=== PATIENT | female | born 1970 | race Caucasian/White ===

== ENCOUNTER → 2017-09-18 | Outpatient (CLI) | payer SELFPAY ==
[~2017-09-18] VITALS: Ht 180.3 cm; Wt 104.7 kg
[~2017-09-18] MED LIST: GLUCOSAMINE 1000 PO; PROVENTIL0.09 MG/A1 IH; SINGULAIR 110 MG/TAB PO; VESICARE 5MG5 MG PO
[2017-09-18 10:01] VITALS: BP 131/73; PULSE 78
[2017-09-18 11:24] VITALS: BP 137/88; PULSE 71
[2017-09-18 11:30] VITALS: BP 151/86; PULSE 99
[2017-09-18 11:31] VITALS: BP 147/82; PULSE 86
[2017-09-18 11:32] VITALS: BP 148/85; PULSE 85
== END ==
LOC: COL.VAS 08:00 → COL.CARD 10:45
DX: R07.89 Other chest pain (principal)
CPT/HCPCS: A9502; J2785